=== PATIENT | female | born 1970 | race Hispanic/Latino ===

== ENCOUNTER 2024-06-13 19:09 | Emergency (ER) | payer MEDICARE ==
[~2024-06-13] VITALS: Ht 170.2 cm; Wt 79.8 kg
[2024-06-13 19:15] VITALS: PULSE 72; RESP 16; TEMP 98.5
[2024-06-13 20:34] VITALS: BP 152/97; PULSE 64; RESP 16; TEMP 98.3; O2SAT 100
== END 2024-06-13 20:47 | disposition home or self-care (01) ==
LOC: ER 19:14
DX: M79.675 Pain in left toe(s) (principal); S93.105A Unspecified dislocation of left toe(s), initial encounter; W18.49XA Other slipping, tripping and stumbling without falling, initial encounter; Y93.E1 Activity, personal bathing and showering; Y92.89 Other specified places as the place of occurrence of the external cause
CPT/HCPCS: 99283

== ENCOUNTER 2024-08-17 09:40 | Emergency (ER) | payer MEDICARE ==
[~2024-08-17] VITALS: Ht 170.2 cm; Wt 79.8 kg
[2024-08-17 09:54] VITALS: TEMP 98.3
[2024-08-17 11:00] LABS: BILIRUBIN,URINE NEGATIVE (NEGATIVE); CLARITY,URINE CLOUDY (CLEAR); COLOR,URINE YELLOW (YELLOW); GLUCOSE, URINE NEGATIVE (NEGATIVE); KETONES,URINE NEGATIVE (NEGATIVE); LEUKOCYTE ESTERASE ,URINE TRACE (NEGATIVE); NITRITE,URINE NEGATIVE (NEGATIVE); PH,URINE 5.5 (5 - 7); PROTEIN,URINE DIPSTICK NEGATIVE (NEGATIVE); URINE UROBILINOGEN 0.2 mg/dL (0.2 - 1)
[2024-08-17 11:15] LABS: BACTERIA,URINE FEW /HPF; EPITHELIAL CELLS,URINE MODERATE /LPF; WBC,URINE (MAN) 0-5 /HPF (0-5)
[2024-08-17 11:30] LABS: BASOPHILS # (AUTO) 0.1 (0.0-0.1); BASOPHILS % 0.8 % (0.0-1.0); EOSINOPHILS # (AUTO) 0.1 (0.0-0.4); EOSINOPHILS % 0.7 % (0.0-6.0); HEMATOCRIT 42.8 % (34.2-44.1); HEMOGLOBIN 13.8 g/dL (12.0-16.0); LYMPHOCYTES # (AUTO) 2.5 (1.0-3.2); LYMPHOCYTES % 33.3 % (18.0-39.1); MEAN CORPUSCULAR HEMOGLOBIN 28.4 pg (28-32); MEAN CORPUSCULAR HGB CONC 32.2 g/dL (31-35); MEAN CORPUSCULAR VOLUME 88.1 fL (81-99); MONOCYTES # (AUTO) 0.6 (0.2-0.8); MONOCYTES % 7.4 % (4.4-11.3); NEUTROPHILS # (AUTO) 4.4 (2.1-6.9); NEUTROPHILS % 57.5 % (38.7-80.0); PLATELET COUNT 282 x10e3/uL (140-360); RED BLOOD COUNT 4.86 x10e6/uL (3.6-5.1); RED CELL DISTRIBUTION WIDTH 14.2 % (11.7-14.4); WHITE BLOOD COUNT 7.57 x10e3/uL (4.8-10.8)
[2024-08-17 11:42] LABS: ALBUMIN 4.4 g/dL (3.5-5.0); ALBUMIN/GLOBULIN RATIO 1.6 (0.8-2.0); ANION GAP 12.8 mmol/L (8-16); BILIRUBIN,TOTAL 0.6 mg/dL (0.2-1.2); CREATININE, SERUM 0.84 mg/dL (0.57-1.11); POTASSIUM 3.8 mmol/L (3.5-5.1); TOTAL PROTEIN 7.2 g/dL (6.5-8.1)
[2024-08-17] MEDS: SODIUM CHLORIDE 0.9% 1000ML 1,000 ML IV STA (11:47)
[2024-08-17] MEDS: DICYCLOMINE HCL 20 MG/2 ML VIAL IM ONE (11:47)
[2024-08-17] MEDS ORDERED: IOPAMIDOL 370 MG/ML 100 ML INFUS..BTL INJ ONE (11:50)
[2024-08-17] MEDS ORDERED: CEFDINIR300 MG PO (14:07)
[2024-08-17 14:31] VITALS: PULSE 65; RESP 16; O2SAT 100
== END 2024-08-17 14:30 | disposition home or self-care (01) ==
LOC: ER 09:45
DX: R30.0 Dysuria (principal); N39.0 Urinary tract infection, site not specified; R10.32 Left lower quadrant pain; E78.5 Hyperlipidemia, unspecified
CPT/HCPCS: 36415; 74177; 80053; 81001; 84702; 85025; 87086; 87186; 99284; J0500; J7030; Q9967